=== PATIENT | male | born 1995 | race Caucasian/White ===

== ENCOUNTER 2017-09-23 02:36 | Emergency (ER) | payer MEDICAID ==
[~2017-09-23] VITALS: Ht 185.4 cm; Wt 75.9 kg
[2017-09-23 02:51] VITALS: Ht 185.4 cm; Wt 75.9 kg
[2017-09-23 04:52] LABS: UA SPECIFIC GRAVITY <=1.005 (1.005-1.035); microscopic required? YES; urine erythrocyte 3+ (NEGATIVE)
[2017-09-23 05:07] VITALS: BP 125/78
== END 2017-09-23 05:00 | disposition home or self-care (01) ==
LOC: ED 02:36
PROVIDERS: Emergency Medicine
DX: N34.2 Other urethritis (principal)
CPT/HCPCS: 87491; 87591; J0696

== ENCOUNTER 2017-10-30 15:22 | Emergency (ER) | payer MEDICAID ==
[~2017-10-30] VITALS: Ht 185.4 cm; Wt 73.9 kg
[2017-10-30 15:41] VITALS: BP 105/89; Ht 185.4 cm; Wt 73.9 kg
== END 2017-10-30 16:15 | disposition left against medical advice (07) ==
LOC: ED 15:22
DX: Z53.21 Procedure and treatment not carried out due to patient leaving prior to being seen by health care provider (principal)